=== PATIENT | male | born 1965 | race African-American/Black ===

== ENCOUNTER 2018-01-11 15:36 | Emergency (ER) | payer OTHER ==
[~2018-01-11] VITALS: Ht 162.6 cm; Wt 65.8 kg
[2018-01-11 18:11] VITALS: BP 148/81
[2018-01-11] MEDS ORDERED: AUGMENTIN 875-1 EACH PO (18:18)
[2018-01-11] MEDS ORDERED: IBUPROFEN800 M1 PO (18:18)
--- NOTE | 2018-01-11 18:18 | ED THROAT/DENTAL COMPLAINT ---
History of Present Illness General Chief Complaint: General Adult Stated Complaint: "GUM IS SWOLLEN.PUSS AND BLOOD ALONG WITH A TRIPP" Source: patient Exam Limitations: no limitations Vital Signs & Intake/Output Vital Signs & Intake/Output Vital Signs Date Time Temp Pulse Resp B/P B/P Pulse O2 O2 Flow FiO2 Mean Ox Delivery Rate 01/11 1811 98.4 88 16 148/81 97 Room Air 01/11 1808 Room Air 01/11 1553 98.6 01/11 1548 98.6 93 18 154/88 97 Room Air Room Air Allergies Coded Allergies: No Known Allergies (01/11/18) Reconcile Medications Amoxicillin/Potassium Clav (Augmentin 875-125 Tablet) 875 MG-125 MG TABLET 1 TAB PO BID DENTAL ABSCESS Ibuprofen 800 MG TABLET 1 TAB PO TID PRN PAIN Triage Note: PT TO ED WITH C/O RIGHT LOWER TOOTH INFECTION X 3 DAYS, PT USED WARM COMPRESSES TODAY AND "I GOT ALOT OF PUS OUT AND THEN SOME BLOOD". Triage Nurses Notes Reviewed? yes Onset: Abrupt Duration: day(s): (3), better, continues in ED Timing: single episode today Injury Environment: home Severity: mild, moderate Severity Numbers: 6 No Modifying Factors: none HPI: 52-year-old male with no past medical history per sensory evaluation of a possible dental abscess. Patient states he noticed pain and swelling to his left lower gums about 3 days ago. He states he's been applying warm compresses and gargling salt water and that today the area opened up a large amount of pus and blood came out. He states he does feel better since the drainage but still reports some swelling and pain. No fever he's been able to drink fluids without difficulty. He does not have a dentist. He also reports that the associated tooth above the abscess is very loose. No chest pain shortness of breath or sore throat. (Stephen Andrew) Past History Travel History Traveled to [place] past 21 day No Medical History Any Pertinent Medical History? see below for history Neurological: NONE EENT: NONE Cardiovascular: NONE Respiratory: NONE Gastrointestinal: NONE Hepatic: NONE Renal: NONE Musculoskeletal: NONE Psychiatric: NONE Endocrine: NONE Blood Disorders: NONE Cancer(s): NONE USED CAR [employer]IC/Reproductive: NONE Surgical History Surgical History: non-contributory Psychosocial History What is your primary language Frisian Tobacco Use: Current Daily Use Daily Tobacco Use Amount/Type: => 5 Cigarettes daily ETOH Use: denies use Illicit Drug Use: denies illicit drug use Family History Hx Contributory? No (Stephen Andrew) Review of Systems Review of Systems Constitutional: Reports: no symptoms. EENTM: Reports: mouth pain, tooth pain. Respiratory: Reports: no symptoms. Cardiovascular: Reports: no symptoms. GI: Reports: no symptoms. Genitourinary: Reports: no symptoms. Musculoskeletal: Reports: no symptoms. Skin: Reports: no symptoms. Neurological/Psychological: Reports: no symptoms. Hematologic/Endocrine: Reports: no symptoms. Immunologic/Allergic: Reports: no symptoms. All Other Systems: Reviewed and Negative (Stephen Andrew) Physical Exam Physical Exam General Appearance: well developed/nourished, no apparent distress, alert, awake Head: atraumatic, normal appearance Eyes: Bilateral: normal appearance, PERRL, EOMI. Ears: Bilateral: canal normal, Tympanic normal. Nose: normal inspection Mouth/Throat: pharynx normal, dental tenderness, multiple missing and rotting teeth. The tooth in the 21/22 area is rotting and loose. Below this tooth is a draining abscess. There is some purulent discharge but no more focal fluctuant areas mild swelling no erythema patient is handling secretions no trismus. There is some left-sided submandibular lymphadenopathy Neck: normal inspection, supple, full range of motion, lymphadenopathy (L) Cardiovascular/Respiratory: normal breath sounds, normal peripheral pulses, regular rate/rhythm, no respiratory distress Back: normal inspection, normal range of motion, no vertebral tenderness Neurologic/Psych: no motor/sensory deficits, awake, alert, oriented x 3, normal gait, normal mood/affect Skin: intact, normal color, warm/dry Core Measures ACS in differential dx? No Sepsis Present: No Sepsis Focused Exam Completed? No (Stephen Andrew) Progress Differential Diagnosis: carious tooth, epiglottitis, meningitis, odontogenic abscess, henny-tonsillar abscess, strep pharyngitis, tooth fracture Plan of Care: Patient is here with a dental abscess. Appears to have already been drained. It is actively draining on my exam. The area was completely expressed. Patient is afebrile appears well he is tolerating fluids and his secretions. Patient will be instructed to use a nonalcohol based mouthwash several times per day continue saltwater/warm compresses. He'll be covered with Augmentin. Use ibuprofen for pain. Patient was given a list of dental clinics advised about the importance of close dental follow-up. Discussed return precautions patient agrees (Stephen Andrew) Departure Departure Disposition: HOME OR SELF CARE Condition: Stable Clinical Impression Primary Impression: Dental abscess Referrals: Patient Has No Primary Care Dr (PCP/Family) Additional Instructions: Take antibiotics as directed for the full course. You need to see a dentist as soon as possible. See attached list. Use ibuprofen 800 mg every 8 hours with food as needed for pain. Apply ice to your jaw. Use a [id number] mouthwash several times per day to cleanse your mouth. Monitor symptoms closely if you have worsening pain worsening swelling fever unable tolerate fluids or any other concerns return immediately. Departure Forms: Customer Survey General Discharge Information Prescriptions: Current Visit Scripts Amoxicillin/Potassium Clav (Augmentin 875-125 Tablet) 1 TAB PO BID #20 TAB Ibuprofen 1 TAB PO TID PRN PAIN #30 TAB (Stephen Andrew) PA/AUTOMATION CONSULTANT Co-Sign Statement Statement: ED Attending supervision documentation- [] I saw and evaluated the patient. I have also reviewed all the pertinent lab results and diagnostic results. I agree with the findings and the plan of care as documented in the PA's/AUTOMATION CONSULTANT's documentation. [x] I have reviewed the ED Record and agree with the PA's/AUTOMATION CONSULTANT's documentation. [] Additions or exceptions (if any) to the PAs/AUTOMATION CONSULTANT's note and plan are summarized below: [] (Shawn Ulrich DO
== END 2018-01-11 18:21 ==
LOC: ERH 15:36
DX: K04.7 Periapical abscess without sinus (principal)